=== PATIENT | female | born 2000 | race Two or more races ===

== ENCOUNTER 2019-04-20 15:12 | Observation (INO) | payer MEDICAID ==
[2019-04-20] MEDS ORDERED: IV RINGERS,LACTATED 1000ML 1,000 ML IV SCH (15:15)
[2019-04-20 15:40] LABS: BILIRUBIN,URINE NEGATIVE (NEG); CLARITY,URINE CLEAR; COLOR,URINE YELLOW; NITRITE,URINE NEGATIVE (NEG); PH,URINE 6.5; PROTEIN,URINE NEGATIVE (NEG-TRACE); UROBILINOGEN,URINE 0.2 mg/dL (0.2 mg/dL)
[2019-04-20 15:44] LABS: CREATININE,RANDOM URINE 113.7 mg/dL (Not Establ.)
[2019-04-20 15:54] LABS: BACTERIA,URINE 0 /HPF (0-FEW); RBC,URINE 0 /HPF (0-2); SQUAMOUS EPITHELIAL CELL,UR FEW /LPF
[2019-04-20 15:56] LABS: BASO % 0 % (0-3); EOS % 0 % (0-3); HEMATOCRIT 37.3 % (36.0-47.0); HEMOGLOBIN 12.5 g/dL (12.0-15.5); LYMPH # 1.9 x10^3/uL (1.0-4.8); LYMPH % 26 % (24-48); MEAN CORPUSCULAR HEMOGLOBIN 30 pg (25-35); MEAN CORPUSCULAR HGB CONC 34 g/dL (31-37); MEAN CORPUSCULAR VOLUME 91 fL (79-100); MONO # 0.4 x10^3/uL (0.0-1.1); MONO % 5 % (0-9); NEUT # 5.2 x10^3/uL (1.8-7.7); NEUT % 69 % (31-73); PLATELET COUNT 206 x10^3/uL (140-400); RED BLOOD COUNT 4.11 x10^6/uL (3.50-5.40); RED CELL DISTRIBUTION WIDTH 15.8 % (11.5-14.5); WHITE BLOOD COUNT 7.5 x10^3/uL (4.0-11.0)
[2019-04-20 16:18] LABS: CALCIUM 8.9 mg/dL (8.5-10.1); CREATININE 0.5 mg/dL (0.6-1.0); GFR 158.9; POTASSIUM 3.7 mmol/L (3.5-5.1)
[2019-04-20 16:23] LABS: ALBUMIN 2.7 g/dL (3.4-5.0); ALBUMIN/GLOBULIN RATIO 0.7 (1.0-1.7); TOTAL BILIRUBIN 0.2 mg/dL (0.2-1.0); TOTAL PROTEIN 6.6 g/dL (6.4-8.2)
== END 2019-04-20 17:07 | disposition home or self-care (01) ==
LOC: 3 SO LND 15:12
PROVIDERS: ADMIT Obstetrics & Gynecology; ATTEND Obstetrics & Gynecology
DX: O13.3 Gestational [pregnancy-induced] hypertension without significant proteinuria, third trimester (principal); Z3A.36 36 weeks gestation of pregnancy
CPT/HCPCS: 36415; 80053; 81001; 82570; 84156; 85025; 87086; G0378; G0379

== ENCOUNTER 2019-04-25 15:45 | Observation (INO) | payer MEDICAID ==
[2019-04-25] MEDS ORDERED: IV RINGERS,LACTATED 1000ML 1,000 ML IV SCH (15:49)
[2019-04-25] MEDS ORDERED: ONDANSETRON PF 4 MG/2 ML VIAL. IV PRN (16:00)
[2019-04-25] MEDS ORDERED: ACETAMINOPHEN 325 MG TABLET. PO PRN (16:00)
[2019-04-25 16:10] LABS: BASO % 0 % (0-3); EOS % 0 % (0-3); HEMATOCRIT 36.9 % (36.0-47.0); HEMOGLOBIN 12.6 g/dL (12.0-15.5); LYMPH # 1.8 x10^3/uL (1.0-4.8); LYMPH % 26 % (24-48); MEAN CORPUSCULAR HEMOGLOBIN 31 pg (25-35); MEAN CORPUSCULAR HGB CONC 34 g/dL (31-37); MEAN CORPUSCULAR VOLUME 90 fL (79-100); MONO # 0.4 x10^3/uL (0.0-1.1); MONO % 6 % (0-9); NEUT # 4.9 x10^3/uL (1.8-7.7); NEUT % 68 % (31-73); PLATELET COUNT 200 x10^3/uL (140-400); RED CELL DISTRIBUTION WIDTH 15.8 % (11.5-14.5); WHITE BLOOD COUNT 7.2 x10^3/uL (4.0-11.0)
[2019-04-25 16:20] LABS: CALCIUM 8.7 mg/dL (8.5-10.1); CREATININE 0.6 mg/dL (0.6-1.0); GFR 128.8
[2019-04-25 16:26] LABS: ALBUMIN 2.5 g/dL (3.4-5.0); ALBUMIN/GLOBULIN RATIO 0.7 (1.0-1.7); TOTAL BILIRUBIN 0.1 mg/dL (0.2-1.0); TOTAL PROTEIN 6.3 g/dL (6.4-8.2)
[2019-04-25 16:47] LABS: BILIRUBIN,URINE NEGATIVE (NEG); CLARITY,URINE CLEAR; COLOR,URINE YELLOW; NITRITE,URINE NEGATIVE (NEG); PH,URINE 6.5; PROTEIN,URINE NEGATIVE (NEG-TRACE); UROBILINOGEN,URINE 0.2 mg/dL (0.2 mg/dL)
[2019-04-25 16:55] LABS: CREATININE,RANDOM URINE 123.3 mg/dL (Not Establ.)
[2019-04-25 17:02] LABS: SQUAMOUS EPITHELIAL CELL,UR MOD /LPF
[2019-04-25 17:03] LABS: BACTERIA,URINE FEW /HPF (0-FEW); YEAST,URINE PRESENT /HPF
[2019-05-01] MEDS ORDERED: IBUP-1060 PO (11:46)
[2019-05-01] MEDS ORDERED: DOCU-109 PO (11:46)
== END 2019-04-25 17:30 | disposition home or self-care (01) ==
LOC: 3 SO LND 15:45
PROVIDERS: ADMIT Obstetrics & Gynecology; ATTEND Obstetrics & Gynecology
DX: O16.3 Unspecified maternal hypertension, third trimester (principal); Z3A.36 36 weeks gestation of pregnancy
CPT/HCPCS: 36415; 80053; 81001; 82570; 84156; 85025; 87086; G0378; G0379

== ENCOUNTER 2019-04-28 13:40 | Observation (INO) | payer MEDICAID ==
[~2019-04-28] VITALS: Ht 160 cm; Wt 83.0 kg
[2019-04-28] MEDS ORDERED: IV RINGERS,LACTATED 1000ML 1,000 ML IV SCH (14:03)
[2019-04-28 14:38] LABS: BILIRUBIN,URINE NEGATIVE (NEG); CLARITY,URINE CLEAR; COLOR,URINE YELLOW; NITRITE,URINE NEGATIVE (NEG); PH,URINE 6.5; PROTEIN,URINE NEGATIVE (NEG-TRACE); UROBILINOGEN,URINE 0.2 mg/dL (0.2 mg/dL)
[2019-04-28 14:45] LABS: BACTERIA,URINE FEW /HPF (0-FEW); RBC,URINE RARE /HPF (0-2); SQUAMOUS EPITHELIAL CELL,UR FEW /LPF; WBC,URINE OCC /HPF (0-4)
[2019-04-28 14:48] LABS: AMNIO PT NEGATIVE
[2019-05-01] MEDS ORDERED: DOCU-109 PO (11:46)
[2019-05-01] MEDS ORDERED: IBUP-1060 PO (11:46)
== END 2019-04-28 15:35 | disposition home or self-care (01) ==
LOC: 3 SO LND 13:40
PROVIDERS: ADMIT Obstetrics & Gynecology; ATTEND Obstetrics & Gynecology
DX: O46.93 Antepartum hemorrhage, unspecified, third trimester (principal); O42.92 Full-term premature rupture of membranes, unspecified as to length of time between rupture and onset of labor; O62.9 Abnormality of forces of labor, unspecified; Z3A.37 37 weeks gestation of pregnancy
CPT/HCPCS: 36415; 81001; 84112; 87086; G0378; G0379

== ENCOUNTER 2019-05-10 04:58 | Emergency (ER) | payer MEDICAID ==
[~2019-05-10] VITALS: Ht 162.6 cm; Wt 83.0 kg
[~2019-05-10 04:58] MED LIST: DOCU-109 PO; IBUP-1060 PO
[2019-05-10] MEDS: IV NORMAL SALINE 1000ML BAG 1,000 ML IV SCH (05:26)
[2019-05-10 05:36] LABS: BASO % 0 % (0-3); EOS # 0.1 x10^3/uL (0.0-0.7); EOS % 1 % (0-3); HEMATOCRIT 39.9 % (36.0-47.0); HEMOGLOBIN 13.4 g/dL (12.0-15.5); LYMPH # 2.6 x10^3/uL (1.0-4.8); LYMPH % 31 % (24-48); MEAN CORPUSCULAR HEMOGLOBIN 31 pg (25-35); MEAN CORPUSCULAR HGB CONC 34 g/dL (31-37); MEAN CORPUSCULAR VOLUME 91 fL (79-100); MONO # 0.5 x10^3/uL (0.0-1.1); MONO % 6 % (0-9); NEUT # 5.1 x10^3/uL (1.8-7.7); NEUT % 61 % (31-73); PLATELET COUNT 370 x10^3/uL (140-400); RED CELL DISTRIBUTION WIDTH 15.8 % (11.5-14.5); WHITE BLOOD COUNT 8.3 x10^3/uL (4.0-11.0)
--- NOTE | 2019-05-10 05:37 | PHYS DOC ---
Past Medical History Past Medical History: Other Additional Past Medical Histor: preclampsia (ASHU MILLAN MD) Past Surgical History: No Surgical History (ASHU MILLAN MD) Alcohol Use: None Drug Use: None (ASHU MILLAN MD) Adult General Chief Complaint Chief Complaint: MULTIPLE COMPLAINTS HPI HPI 18-year-old female with delivery on 04/29 secondary to preeclampsia, presents to the emergency department with complaints of headache, chest pain. She states pain is worse with deep breath. She states her headache is bitemporal, no visual disturbance, she has had nausea. States she's tried Motrin [id number] without improvement. Blood pressure currently 133/68, heart rate 69, afebrile. She is currently on no medications at this time. She states given her pain she continued to the emergency department for further evaluation. EKG is obtained 0 512 with no acute abnormality seen, heart rate 69. Nothing is improved her pain. (ASHU MILLAN MD) Review of Systems Review of Systems Constitutional: Denies fever or chills [] Respiratory: Denies cough or shortness of breath [] Cardiovascular: No additional information not addressed in HPI [] GI: Denies abdominal pain, + nausea, no vomiting, bloody stools or diarrhea [] : Denies dysuria or hematuria [] Musculoskeletal: Denies back pain or joint pain [] Integument: Denies rash or skin lesions [] Neurologic: + headache, no focal weakness or sensory changes [] All other systems were reviewed and found to be within normal limits, except as documented in this note. (ASHU MILLAN MD) Current Medications Current Medications Current Medications Medications (Trade) Dose Ordered Sig/Saul Start Time Stop Time Status Last Admin Dose Admin Diphenhydramine HCl (Benadryl) 25 mg 1X ONCE 05/10/19 06:00 05/10/19 06:01 DC 05/10/19 05:53 25 MG Ketorolac Tromethamine (Toradol 30mg Vial) 30 mg 1X ONCE 05/10/19 06:30 05/10/19 06:31 DC 05/10/19 06:13 30 MG Ondansetron HCl (Zofran) 4 mg 1X ONCE 05/10/19 06:00 05/10/19 06:01 DC 05/10/19 05:53 4 MG Sodium Chloride 1,000 ml @ 1,000 mls/hr Q1H 05/10/19 05:30 05/10/19 06:29 DC 05/10/19 05:26 1,000 MLS/HR (ANIRUDH DEL VALLE MD) Allergies Allergies Allergies Coded Allergies Type Severity Reaction Last Updated Verified No Known Drug Allergies 04/20/19 No (ANIRUDH DEL VALLE MD) Physical Exam Physical Exam Constitutional: Well developed, well nourished, no acute distress, non-toxic appearance. [] HENT: Normocephalic, atraumatic, bilateral external ears normal, oropharynx moist, no oral exudates, nose normal. [] Eyes: PERRLA, EOMI, conjunctiva normal, no discharge. [] Cardiovascular:Heart rate regular rhythm, no murmur [] Lungs & Thorax: Bilateral breath sounds clear to auscultation [] Abdomen: Bowel sounds normal, soft, no tenderness, no masses, no pulsatile masses. [] Skin: Warm, dry, no erythema, no rash. [] Back: No tenderness, no CVA tenderness. [] Extremities: No tenderness, no edema. [] Neurologic: Alert and oriented X 3, no focal deficits noted. [] Psychologic: Affect normal, judgement normal, mood normal. [] (ASHU MILLAN MD) Current Patient Data Vital Signs Vital Signs Date Time Temp Pulse Resp B/P (MAP) Pulse Ox O2 Delivery O2 Flow Rate FiO2 05/10/19 06:09 55 20 125/74 (91) 98 Room Air 05/10/19 05:07 98.8 98.8 (ANIRUDH DEL VALLE MD) Lab Values Laboratory Tests Test 05/10/19 05:15 05/10/19 05:20 Urine Color Yellow Urine Clarity Clear Urine pH 6.5 Urine Specific [place] 1.015 Urine Protein Negative mg/dL (NEG-TRACE) Urine Glucose (UA) Negative mg/dL (NEG) Urine Ketones (Stick) Negative mg/dL (NEG) Urine Blood Large (NEG) Urine Nitrite Negative (NEG) Urine Bilirubin Negative (NEG) Urine Urobilinogen Dipstick 0.2 mg/dL (0.2 mg/dL) Urine Leukocyte Esterase Large (NEG) Urine RBC 6-10 /HPF (0-2) Urine WBC 5-10 /HPF (0-4) Urine Squamous Epithelial Cells None /LPF Urine Bacteria Few /HPF (0-FEW) White Blood Count 8.3 x10^3/uL (4.0-11.0) Red Blood Count 4.40 x10^6/uL (3.50-5.40) Hemoglobin 13.4 g/dL (12.0-15.5) Hematocrit 39.9 % (36.0-47.0) Mean Corpuscular Volume 91 fL (79-100) Mean Corpuscular Hemoglobin 31 pg (25-35) Mean Corpuscular Hemoglobin Concent 34 g/dL (31-37) Red Cell Distribution Width 15.8 % (11.5-14.5) H Platelet Count 370 x10^3/uL (140-400) Neutrophils (%) (Auto) 61 % (31-73) Lymphocytes (%) (Auto) 31 % (24-48) Monocytes (%) (Auto) 6 % (0-9) Eosinophils (%) (Auto) 1 % (0-3) Basophils (%) (Auto) 0 % (0-3) Neutrophils # (Auto) 5.1 x10^3/uL (1.8-7.7) Lymphocytes # (Auto) 2.6 x10^3/uL (1.0-4.8) Monocytes # (Auto) 0.5 x10^3/uL (0.0-1.1) Eosinophils # (Auto) 0.1 x10^3/uL (0.0-0.7) Basophils # (Auto) 0.0 x10^3/uL (0.0-0.2) Prothrombin Time 12.4 SEC (11.7-14.0) Prothrombin Time INR 1.0 (0.8-1.1) Sodium Level 138 mmol/L (136-145) Potassium Level 3.7 mmol/L (3.5-5.1) Chloride Level 103 mmol/L (98-107) Carbon Dioxide Level 24 mmol/L (21-32) Anion Gap 11 (6-14) Blood Urea Nitrogen 19 mg/dL (7-20) Creatinine 0.7 mg/dL (0.6-1.0) Estimated GFR (Cockcroft-Gault) 107.8 BUN/Creatinine Ratio 27 (6-20) H Glucose Level 103 mg/dL (70-99) H Calcium Level 9.2 mg/dL (8.5-10.1) Total Bilirubin 0.3 mg/dL (0.2-1.0) Aspartate Amino Transferase (AST) 18 U/L (15-37) Alanine Aminotransferase (ALT) 19 U/L (14-59) Alkaline Phosphatase 128 U/L (46-116) H XQ-Mpu-F-Type Natriuretic Peptide 19 pg/mL (0-124) Total Protein 7.4 g/dL (6.4-8.2) Albumin 3.0 g/dL (3.4-5.0) L Albumin/Globulin Ratio 0.7 (1.0-1.7) L Laboratory Tests 05/10/19 05:20 Laboratory Tests 05/10/19 05:20 (ANIRUDH DEL VALLE MD) Lab Values Laboratory Tests Test 05/10/19 05:20 White Blood Count 8.3 x10^3/uL (4.0-11.0) Red Blood Count 4.40 x10^6/uL (3.50-5.40) Hemoglobin 13.4 g/dL (12.0-15.5) Hematocrit 39.9 % (36.0-47.0) Mean Corpuscular Volume 91 fL (79-100) Mean Corpuscular Hemoglobin 31 pg (25-35) Mean Corpuscular Hemoglobin Concent 34 g/dL (31-37) Red Cell Distribution Width 15.8 % (11.5-14.5) H Platelet Count 370 x10^3/uL (140-400) Neutrophils (%) (Auto) 61 % (31-73) Lymphocytes (%) (Auto) 31 % (24-48) Monocytes (%) (Auto) 6 % (0-9) Eosinophils (%) (Auto) 1 % (0-3) Basophils (%) (Auto) 0 % (0-3) Neutrophils # (Auto) 5.1 x10^3/uL (1.8-7.7) Lymphocytes # (Auto) 2.6 x10^3/uL (1.0-4.8) Monocytes # (Auto) 0.5 x10^3/uL (0.0-1.1) Eosinophils # (Auto) 0.1 x10^3/uL (0.0-0.7) Basophils # (Auto) 0.0 x10^3/uL (0.0-0.2) Sodium Level 138 mmol/L (136-145) Potassium Level 3.7 mmol/L (3.5-5.1) Chloride Level 103 mmol/L (98-107) Carbon Dioxide Level 24 mmol/L (21-32) Anion Gap 11 (6-14) Blood Urea Nitrogen 19 mg/dL (7-20) Creatinine 0.7 mg/dL (0.6-1.0) Estimated GFR (Cockcroft-Gault) 107.8 BUN/Creatinine Ratio 27 (6-20) H Glucose Level 103 mg/dL (70-99) H Calcium Level 9.2 mg/dL (8.5-10.1) Total Bilirubin 0.3 mg/dL (0.2-1.0) Aspartate Amino Transferase (AST) 18 U/L (15-37) Alanine Aminotransferase (ALT) 19 U/L (14-59) Alkaline Phosphatase 128 U/L (46-116) H AL-Hlk-Z-Type Natriuretic Peptide 19 pg/mL (0-124) Total Protein 7.4 g/dL (6.4-8.2) Albumin 3.0 g/dL (3.4-5.0) L Albumin/Globulin Ratio 0.7 (1.0-1.7) L Laboratory Tests 05/10/19 05:20 Laboratory Tests 05/10/19 05:20 (ASHU MILLAN MD) EKG EKG EKG reviewed 0512, nml axis, hear rate 69 no evidence of stemi appreciated[] (ASHU MILLAN MD) Radiology/Procedures Radiology/Procedures [] (ASHU MILLAN MD) Radiology/Procedures [facility] [address] [place] [address] IMAGING REPORT Signed PATIENT: DUSTIN SHARMAACCOUNT: [id number] : 2000 LOCATION: ER AGE: 18 SEX: F EXAM STATUS: REG ER ORD. PHYSICIAN: ASHU MILLAN MD REASON: pain with deep breath PROCEDURE: CHEST AP ONLY AP chest x-ray HISTORY: Chest pain with deep inspiration. FINDINGS: Heart size upper limits of normal may be magnified by the AP portable technique. Mediastinal silhouette is normal. The far superior lung apices are outside the [id number]. No pneumothorax, pulmonary opacities or pleural effusions. The bones are unremarkable. IMPRESSION: No acute process. Electronically signed by: Rafael Wooten MD (05/10/2019 6:08 AM) [id number] DICTATED and SIGNED BY: RAFAEL WOOTEN MD DATE: 05/10/19 0608 [facility] [address] [place] [address] IMAGING REPORT Signed PATIENT: DUSTIN SHARMAACCOUNT: [id number] : 2000 LOCATION: ER AGE: 18 SEX: F EXAM STATUS: REG ER ORD. PHYSICIAN: ASHU MILLAN MD REASON: headache, history or preeclampsia PROCEDURE: CT HEAD WO CONTRAST CT head without contrast PQRS statement: CT scans at this facility use dose reduction including either automated exposure control, iterative reconstructions, and /or weight based radiation dosing via mA and kV modification when appropriate to reduce radiation dose to as low as reasonably achievable. HISTORY: Headache. FINDINGS: No intracranial hemorrhage, mass, hydrocephalus, extra-axial fluid collections or infarction. No acute ischemic changes evident. Orbits, mastoids and bones are unremarkable. IMPRESSION: Normal exam. Electronically signed by: Rafael Wooten MD (05/10/2019 6:14 AM) [id number] DICTATED and SIGNED BY: RAFAEL WOOTEN MD DATE: 05/10/19 0614 (ANIRUDH DEL VALLE MD) Course & Med Decision Making Course & Med Decision Making Pertinent Labs and Imaging studies reviewed. (See chart for details) []18-year-old female with delivery on 04/29 secondary to preeclampsia, presents to the emergency department with complaints of headache, chest pain. She states pain is worse with deep breath. She states her headache is bitemporal, no visual disturbance, she has had nausea. States she's tried Motrin [id number]-[id number] without improvement. Blood pressure currently 133/68, heart rate 69, afebrile. She is currently on no medications at this time. She states given her pain she continued to the emergency department for further evaluation. EKG is obtained 0 512 with no acute abnormality seen, heart rate 69. Nothing is improved her pain. Patient signed out to oncoming colleague at 0600. Discussed case with DR. DEL VALLE - she will follow up patient with plans for disposition (ASHU MILLAN MD) Course & Med Decision Making Patient's care transferred to [place] at 0600. Patient is sleeping without problem. Blood pressure was 124/64. Labs and CT head and chest x-ray was unremarkable. Patient was advised to increase fluid intake and follow up with her PCAT INSTRUCTOR. I've spoken with the patient and/or caregivers. I've explained the patient's condition, diagnosis and treatment plan based on information available to me at this time. I've answered the patient's and/or caregivers questions and addressed any concerns. The patient and/or caregivers have a good understanding the patient's diagnosis, condition and treatment plan as can be expected at this point. Vital signs have been stabilized. The patient's condition is stable for discharge from the emergency department. The patient will pursue further outpatient evaluation with her primary care provider or other designated consulting physician as outlined in the discharge instructions. Patient and/or caregivers are agreeable to this plan of care and follow-up instructions have been explained in detail. The patient and/or caregivers have received these instructions in written format and expressed understanding of these discharge instructions. The patient and her caregivers are aware that if any significant change in condition or worsening of symptoms should prompt him to immediately return to this of the closest emergency department. If an emergent department is not readily available I would encourage him to call 911. (ANIRUDH DEL VALLE MD) Dragon Disclaimer Dragon Disclaimer This electronic medical record was generated, in whole or in part, using a voice recognition dictation system. (ASHU MILLAN MD) Departure Departure Impression: Primary Impression: Headache Disposition: HOME, SELF-CARE (at 071) Condition: IMPROVED Referrals: NO PCP (PCP) Patient Instructions: Headache, FAQs Additional Instructions: Drink plenty of liquids Follow-up with your primary care and PCAT INSTRUCTOR physician in 2-3 days Return to ER if not getting better Thank you for visiting [facility]. We appreciate you trusting us with your care. If any additional problems come up don't hesitate to return to visit us. Please follow up with your primary care provider so they can plan additional care if needed and know about the problem that you had. If symptoms worsen come back to the Emergency Department. Any concerning symptoms that start such as chest pain, shortness of air, weakness or numbness on one side of the body, running high fevers or any other concerning symptoms return to the ER. Scripts Ondansetron Hcl (ZOFRAN) 4 Mg Tablet 1 TAB PO PRN Q6-8HRS for nausea, #12 TAB Prov: ANIRUDH DEL VALLE MD 05/10/19 Hydrocodone/Apap 5-325 (NORCO 5-325 TABLET) 1 Each Tablet 1 TAB PO PRN Q6HRS PRN for PAIN, #10 TAB 0 Refills Prov: ANIRUDH DEL VALLE MD 05/10/19 Problem Qualifiers Primary Impression: Headache Headache type: unspecified Headache chronicity pattern: unspecified pattern Intractability: not intractable Qualified Codes: R51 - Headache ASHU MILLAN MD May 10, 2019 05:37 ANIRUDH DEL VALLE MD May 10, 2019 07:04
--- NOTE | 2019-05-10 05:40 | EKG ---
[facility] [address] [place] [address] Test Date: 2019-05-10 Test Time: 05:12:07 Pat Name: DUSTIN SHARMA Department: Room: Gender: F Technical Research Scientist: : 2000 Requested By: ASHU MILLAN Order Number: [id number] Reading MD: Measurements Intervals [place] Rate: 69 P: 44 FL: 122 QRS: 58 QRSD: 82 T: 34 QT: 398 QTc: 428 Interpretive Statements SINUS RHYTHM LEFT ATRIAL ABNORMALITY INCOMPLETE RIGHT BUNDLE BRANCH BLOCK ABNORMAL ECG RI6.01 No previous ECG available for comparison
[2019-05-10 05:45] LABS: CALCIUM 9.2 mg/dL (8.5-10.1); CREATININE 0.7 mg/dL (0.6-1.0); GFR 107.8; POTASSIUM 3.7 mmol/L (3.5-5.1)
[2019-05-10 05:51] LABS: ALBUMIN/GLOBULIN RATIO 0.7 (1.0-1.7); TOTAL BILIRUBIN 0.3 mg/dL (0.2-1.0); TOTAL PROTEIN 7.4 g/dL (6.4-8.2)
[2019-05-10 05:52] LABS: PROTHROMBIN TIME PATIENT 12.4 SEC (11.7-14.0)
[2019-05-10] MEDS: diphenhydrAMINE 50 MG/ML VIAL IVP ONE (05:53)
[2019-05-10] MEDS: ONDANSETRON PF 4 MG/2 ML VIAL. IV ONE (05:53)
[2019-05-10 05:59] LABS: BILIRUBIN,URINE NEGATIVE (NEG); CLARITY,URINE CLEAR; COLOR,URINE YELLOW; NITRITE,URINE NEGATIVE (NEG); PH,URINE 6.5; PROTEIN,URINE NEGATIVE (NEG-TRACE); UROBILINOGEN,URINE 0.2 mg/dL (0.2 mg/dL)
[2019-05-10] MEDS ORDERED: KETOROLAC 30 MG/ML VIAL. ONE (06:03)
--- NOTE | 2019-05-10 06:10 | RAD ---
AP chest x-ray HISTORY: Chest pain with deep inspiration. FINDINGS: Heart size upper limits of normal may be magnified by the AP portable technique. Mediastinal silhouette is normal. The far superior lung apices are outside the [id number]. No pneumothorax, pulmonary opacities or pleural effusions. The bones are unremarkable. IMPRESSION: No acute process. Electronically signed by: Nirmal Wooten MD (05/10/2019 6:08 AM) [facility]
[2019-05-10 06:13] LABS: BACTERIA,URINE FEW /HPF (0-FEW)
[2019-05-10] MEDS: KETOROLAC 30 MG/ML VIAL. IVP ONE (06:13)
--- NOTE | 2019-05-10 06:17 | RAD ---
CT head without contrast PQRS statement: CT scans at this facility use dose reduction including either automated exposure control, iterative reconstructions, and /or weight based radiation dosing via mA and kV modification when appropriate to reduce radiation dose to as low as reasonably achievable. HISTORY: Headache. FINDINGS: No intracranial hemorrhage, mass, hydrocephalus, extra-axial fluid collections or infarction. No acute ischemic changes evident. Orbits, mastoids and bones are unremarkable. IMPRESSION: Normal exam. Electronically signed by: Nirmal Wooten MD (05/10/2019 6:14 AM) [facility]
[2019-05-10] MEDS ORDERED: HYDR-3164 PO (07:04)
[2019-05-10] MEDS ORDERED: ONDA4TAB7 PO (07:04)
[2019-05-10 07:09] VITALS: BP 117/56
== END 2019-05-10 07:17 | disposition home or self-care (01) ==
LOC: ER 04:58
DX: R51 Headache (principal); R07.1 Chest pain on breathing; R11.0 Nausea
CPT/HCPCS: 36415; 70450; 71045; 80053; 81001; 83880; 85025; 85610; 87086; 93005; 96374; 96375; 99285; J1200; J1885; J2405; J7030